=== PATIENT | male | born 1960 | race Caucasian/White ===

== ENCOUNTER 2016-11-28 20:24 | Inpatient (IN) | payer OTHER ==
--- NOTE | ~2016-11-28 | DS ---
Unit #: [id number] #: [id number] Patient: WILLIAM OCAMPO [id number] [address] [address] [id number] I MR#: [id number] NAME: WILLIAM OCAMPO. ROOM: 331 Age: 56 Sex: M Admission Date: 11/29/2016 : 1960 Discharge Date: 11/30/2016 Attending Physician: Ayanna Keita M.D. Primary Care Physician: No Primary Care Physician DISCHARGE SUMMARY SEE ADDENDUM PRINCIPAL DIAGNOSES 1. Acute kidney injury, prerenal, plus or minus a small amount of acute tubular necrosis. 2. Hypotension secondary to dehydration. 3. Rhabdomyolysis. 4. Polysubstance abuse including amphetamine and marijuana. 5. Near syncope secondary to dehydration. 6. Gastroesophageal reflux disease. 7. Tobaccoism. 8. High anion gap metabolic acidosis secondary to uremia. CONSULTANTS None. DIAGNOSTIC STUDIES IMAGING: X-ray of the right elbow on November 28, 2016, which was normal. CT of the head without contrast on November 28, 2016, which was also normal. Bilateral renal ultrasound on November 29, 2016, with bilateral increase in renal cortical echogenicity consistent with medical renal disease. No evidence of hydronephrosis. CLINICAL HISTORY AND HOSPITAL COURSE Mr. Ocampo is a nice, 56-year-old, male who presents to the emergency department with several episodes of near syncope. Please refer to H and P for further details. During one of patient's dizzy spells, he did fall and ended up with a head laceration and elbow laceration. In the emergency department, he was found to be hypotensive. He was also found to have a creatinine of 6.4 with an unknown baseline. He was subsequently admitted. Nephrotoxic medications were discontinued. He was placed on IV fluids and creatinine has trended down rather significantly. On day of discharge creatinine is now down to 1.5. Dictated by... Ayanna Keita M.D. VINCENZO/kay TD: 12/01/2016 08:59 JOB #: [id number] Unit #: [id number] #: [id number] Patient: WILLIAM OCAMPO [facility] On day of discharge, creatinine is now down to 1.5. I will note that patient's renal ultrasound did reveal some perhaps underlying medical renal disease and this discharge creatinine should be compared to baseline by his primary care physician. Patient did also have some associated mild rhabdomyolysis likely secondary to his work in the heat. This has resolved with IV hydration. Patient's urine drug screen did reveal marijuana and amphetamines. Neither of these medications are on his home med rec, but he denies any illicit drug use. Patient will be discharged home today. DISCHARGE CONDITION Stable. DISCHARGE STATUS Discharged to home. DISCHARGE MEDICATIONS 1. Lortab 10/325 one tablet p.o. q.6 hours p.r.n. for pain. 2. Prilosec 10 mg daily. 3. Bactroban ointment topically to his elbow twice daily. 4. Of note, I am discontinuing lisinopril and Aleve until he is seen in followup by his primary care physician. DISCHARGE INSTRUCTIONS 1. Patient instructed to follow a regular diet. 2. He can increase activity as tolerated and has been encouraged to drink large, large amounts of liquids while at work. 3. He can refrain from any further tobacco use and illicit drug use if indeed this is the case. 4. Followup: Patient to follow up with his primary care provider in approximately two weeks. Dictated by... Ayanna Keita M.D. VINCENZO/kay TD: 12/01/2016 09:14 JOB #: [id number] DISCHARGE SUMMARY Page 1 of 1 X Ayanna Keita MD X DISCHARGE SUMMARY
--- NOTE | ~2016-11-28 | CT71 ---
[facility] A Service [facility] RADIOLOGY TEXT RESULTS PATIENT: WILLIAM GAINES LOCATION: [place] [address]- : [birth year] UNIT #: [id number] AGE: [address]: Ayanna Keita MD SEX: M ORDER DR: [id number] [address] [address] [id number] E MR#: [id number] Acc #: [id number] NAME: WILLIAM GAINES : 1960 SEX: M STUDY DATE/TIME: 11/28/2016 21:18 UNIT: SED ROOM: STUDY DESCRIPTION: CT Head Wo Contrast Attending Physician: Khoa Curry Aprn Ordering Physician: Khoa Curry Aprn Primary Care Physician: Primary Care Physician No MEDICAL IMAGING REPORT This report is preliminary unless electronic signature is present. EXAM CT head without contrast dated 11/28/16. COMPARISON None. HISTORY Syncope times 3 today. Decreased BP and posterior headache. TECHNIQUE CT of the head was obtained without contrast in the axial plane as per the protocol. This CT exam was performed with one or more of the following radiation dose reduction techniques: Automatic exposure control, adjustment of mA and/or kV according to patient size, and iterative reconstruction. FINDINGS Ventricular size and configuration are normal. There is no evidence of acute infarct or hemorrhage. There are no extraaxial fluid collections. No mass lesion or mass effect is seen. There are no skull fractures. Minimal S-shaped nasal septal deviation is seen. Paranasal sinuses and mastoid air cells are well aerated with aplastic right and very hypoplastic left frontal sinuses. Orbits with the ocular structures do not demonstrate any significant abnormality. Mild motion artifact is noted in some of the images at the base of the brain. IMPRESSION No acute intracranial abnormality. [facility] A Service [facility] RADIOLOGY TEXT RESULTS PATIENT: WILLIAM GAINES LOCATION: [facility] 331- : [birth year] UNIT #: [id number] AGE: [address]: Ayanna Keita MD SEX: M ORDER DR: Dictated by... Arti Noyola M.D. THIS IS AN ELECTRONICALLY VERIFIED REPORT Arti Noyola M.D. at 11/30/2016 6:04 PM CPR/psc TD: 11/28/2016 23:37 JOB #: [id number] MEDICAL IMAGING REPORT Page 1 of 1
--- NOTE | ~2016-11-28 | EKG ---
PATIENT: WILLIAM GAINES UNIT #: [id number] Ventricular Rate: 78 BPM Atrial Rate: 78 BPM P-R Interval: 126 ms QRS Duration: 100 ms Q-T Interval: 390 ms QTC Calculation(Bezet): 444 ms P [place]: 82 degrees Calculated R [place]: 82 degrees Calculated T [place]: 63 degrees Diagnosis Line: Normal sinus rhythm Diagnosis Line: Normal ECG Diagnosis Line: No previous ECGs available Diagnosis Line: Confirmed by TOMA BETANCUR MD ([id number]) on Diagnosis Line: 12/06/2016 8:28:24 AM INTERPRETING MD: GYPSY GAY
--- NOTE | ~2016-11-28 | US77 ---
[facility] A Service of [facility] RADIOLOGY TEXT RESULTS PATIENT: WILLIAM GAINES LOCATION: [facility] 331- : [birth year] UNIT #: [id number] AGE: [address]: Ayanna Keita MD SEX: M ORDER DR: [id number] [facility] [address] [facility]. [place], [place] [address] [id number] I MR#: [id number] Acc #: [id number] NAME: WILLIAM GAINES. : 1960 SEX: M STUDY DATE/TIME: 11/29/2016 14:37 UNIT: [address] ROOM: [facility] STUDY DESCRIPTION: US Kidney Bilateral Complete Attending Physician: Ayanna Keita M.D. Ordering Physician: Jazzy Baltazar M.D. Primary Care Physician: No Primary Care Physician MEDICAL IMAGING REPORT This report is preliminary unless electronic signature is present EXAM Renal ultrasound 11/29/2016 HISTORY Abnormal renal function tests on 11/29/2016; elevated BUN of 54, elevated creatinine of 4.8, abnormally low GFR of 15.9. Hydronephrosis. FINDINGS The right kidney measured 13.5 cm, while the left kidney measured 12.6 cm in longitudinal dimensions. There is no evidence of hydronephrosis or nephrolithiasis. No cystic or solid mass lesions were seen on either kidney. There is increased renal cortical echogenicity characteristic of medical renal disease. Images of the bladder are normal. IMPRESSION Bilateral increase in renal cortical echogenicity characteristic of medical renal disease. No evidence of hydronephrosis. Dictated by... Carlos Jiménez M.D. THIS IS AN ELECTRONICALLY VERIFIED REPORT Carlos Jiménez M.D. at 11/30/2016 8:02 AM CARLOS/rex TD: 11/29/2016 18:39 JOB #: [id number] MEDICAL IMAGING REPORT Page 1 of 1 COPY
--- NOTE | ~2016-11-28 | CR94 ---
[facility] A Service of [facility] RADIOLOGY TEXT RESULTS PATIENT: WILLIAM GAINES LOCATION: [place] [address] : [birth year] UNIT #: [id number] AGE: [address]: Ayanna Keita MD SEX: M ORDER DR: [id number] [address] [address] [id number] E MR#: [id number] Acc #: [id number] NAME: WILLIAM GAINES : 1960 SEX: M STUDY DATE/TIME: 11/28/2016 21:17 UNIT: SED ROOM: STUDY DESCRIPTION: CR Elbow Min 3 Views Rt Attending Physician: Khoa Curry Aprn Ordering Physician: Khoa Curry Aprn Primary Care Physician: Primary Care Physician No MEDICAL IMAGING REPORT This report is preliminary unless electronic signature is present. EXAM Right elbow series 11/28/2016 INDICATIONS Syncopal episode times 3 today. Hypotension. Right elbow pain posteriorly after the syncopal episode. Posterior head pain. TECHNIQUE Three views of the right elbow. No comparisons. FINDINGS The examination is negative, no acute fracture, no retained opaque foreign body or joint effusion. IMPRESSION 1. Negative. Dictated by... Victor Hugo Nunez M.D. THIS IS AN ELECTRONICALLY VERIFIED REPORT Victor Hugo Nunez M.D. at 11/29/2016 3:17 PM ISABEL/robinson TD: 11/28/2016 23:35 JOB #: [id number] MEDICAL IMAGING REPORT Page 1 of 1
--- NOTE | ~2016-11-28 | HP ---
Unit #: [id number] #: [id number] Patient: WILLIAM GAINES [id number] [address] [place], [place] [address] [id number] I MR#: [id number] NAME: WILLIAM GAINES ROOM: 331 Age: 56 Sex: M Admission Date: 11/29/2016 : 1960 Attending Physician: Jazzy Baltazar M.D. Primary Care Physician: No Primary Care Physician HISTORY AND PHYSICAL CHIEF COMPLAINT Syncope, near syncope, hypotension, acute kidney injury. HISTORY This 56-year-old male with hypertension, DJD, GERD, was transferred from [facility] emergency department for acute kidney injury and syncope. The patient states that he was well until one week prior to admission when he began to experience postural lightheadedness. Notes decreasing urine output over the past week as well. Yesterday, he had three syncopal episodes, hit his right elbow and his head. He was taken to [facility] ER where his blood pressure was 86/61. Labs showed acute kidney injury, and mild rhabdomyolysis. Specific gravity was greater than 1.030 on urinalysis. A Narvaez catheter was placed and the patient only had about 100 mL of urine in his bladder. He was bolused with a liter of saline with improvement of his blood pressure, and started on maintenance fluids. Although patient denies illicit drug use, his urine tox screen is positive for amphetamines. He states that he does work in the heat, and has been experiencing muscle cramps. The patient is prescribed Aleve and lisinopril. PAST MEDICAL HISTORY 1. DJD. 2. Hypertension. 3. GERD. 4. Left hand surgery. ALLERGIES None. HOME MEDICATIONS 1. Lisinopril 20 mg daily. 2. Lortab 10/325 q.6 hours as needed. 3. Prilosec daily. 4. Aleve 220 mg b.i.d. to t.i.d. p.r.n. FAMILY HISTORY Negative for kidney disease. SOCIAL HISTORY The patient lives with his . He smokes less than one pack per day of tobacco, does not drink alcohol. Denies illicit drug use. REVIEW OF SYSTEMS Unit #: [id number] #: [id number] Patient: WILLIAM GAINES Notable for syncope, near syncope, DJD, hypertension, GERD, tobacco use, left hand surgery. All other systems were reviewed and are otherwise negative. PHYSICAL EXAMINATION GENERAL APPEARANCE: Pleasant 56-year-old male, currently in no acute distress. VITAL SIGNS: Temperature 97.8, pulse 86, respirations 18, initial blood pressure 86/61 which has improved. O2 saturation is 99% on room air. HEENT: Eyes PERRLA. Extraocular muscles are intact. Pharynx is benign. NECK: Supple without adenopathy or thyromegaly. CHEST: Clear. CARDIAC: Normal S1 and S2 without S3, S4 or murmur. ABDOMEN: Bowel sounds are present. No hepatosplenomegaly, tenderness or masses. EXTREMITIES: Without clubbing, cyanosis or edema. Pedal pulses are present. There is an abrasion over the right elbow. NEUROLOGIC EXAM: The patient is awake, alert, oriented. Cranial nerves are intact. Equal strength throughout. DIAGNOSTIC STUDIES LABORATORY: Admission labs - hematocrit is 52.3, white blood count is 11.5, normal platelet count. Negative cardiac markers. CPK is 1059. SMA-12 - glucose 144, BUN 61, creatinine 6.4 without previous values for comparison. CO2 is 19, albumin is 5.3. Urine tox screen positive for amphetamines, marijuana and opiates. Urinalysis - 2+ protein, 3+ blood with 5-10 red cells, 2-5 white cells, 1+ bacteria. Specific gravity greater than 1.030. IMAGING: Head CT - no acute disease. X-ray of the right elbow - no fracture. CARDIOVASCULAR: EKG - normal sinus rhythm, rate 78. Normal appearing. ASSESSMENT 1. Acute kidney injury, likely secondary to combination of dehydration, eat exposure, nonsteroidal anti-inflammatory drugs and lisinopril: Patient may have an element of acute tubular necrosis from hypotension. 2. Hypotension with history of hypertension on lisinopril. 3. Postural syncope and near syncope, likely related to orthostatic hypotension. 4. Mild rhabdomyolysis. 5. Positive urine tox screen. PLANS 1. Aggressive IV fluids. 2. Renal ultrasound. 3. Discontinue lisinopril and Aleve. 4. SCDs for DVT prophylaxis. 5. Repeat labs in the morning. If renal function is not improving, then will ask nephrology to see. Unit #: [id number] #: [id number] Patient: WILLIAM GAINES Dictated by Jazzy Baltazar M.D. AML/df TD: 11/29/2016 06:45 JOB #: [id number] HISTORY AND PHYSICAL Page 1 of 1 X Jazzy Baltazar MD X HISTORY AND PHYSICAL
[2016-11-28] MEDS ORDERED: LISINOPRIL PO (20:34)
[2016-11-28 21:13] LABS: BASOPHIL% 0.4 % (0-2.5); EOSINOPHIL# 0.1 X10e3 (0-0.7); EOSINOPHIL% 0.7 % (0.0-7.0); HEMATOCRIT 52.3 % (38.0-50.0); HEMOGLOBIN 17.3 gm/dL (13.0-16.0); LYMPHOCYTE# 1.7 X10e3 (1.0-3.5); LYMPHOCYTE% 14.6 % (17.0-45.0); MEAN CORPUSCULAR HEMOGLOBIN 30.2 PG (28-34); MEAN CORPUSCULAR HGB CONC 33.2 g/dL (30-36); MEAN PLATELET VOLUME 7.2 FL (6.5-11.5); MONOCYTE# 0.6 X10e3 (0-1.0); MONOCYTE% 5.2 % (3.0-12.0); NEUTROPHIL# 9.1 X10e3 (1.5-7.1); NEUTROPHIL% 79.1 % (40-75); PLATELET COUNT 306 X10e3 (140-420); RED BLOOD COUNT 5.75 X10e (3.90-5.60); RED CELL DISTRIBUTION WIDTH 13.6 % (11.0-15.5); WHITE BLOOD COUNT 11.5 X10e3 (4.0-10.5)
[2016-11-28 21:16] LABS: DIFF IND NO
[2016-11-28 21:28] LABS: POC - TROPONIN <0.05 ng/mL (<=0.05)
[2016-11-28 21:31] LABS: ALBUMIN SERUM 5.3 g/dL (3.5-5.0); BILIRUBIN, DIRECT 0.1 mg/dL (0.0-0.2); BILIRUBIN,INDIRECT 0.5 mg/dL (0.0-0.9); BILIRUBIN,TOTAL 0.6 mg/dL (0.2-2.0)
[2016-11-28 22:09] LABS: BUN/CREATININE RATIO 9.53; CREATININE SERUM 6.4 mg/dL (0.6-1.4); POTASSIUM 4.6 mmol/L (3.5-5.1)
[2016-11-29 00:49] LABS: URINE SOURCE CLEAN CATCH
[2016-11-29 00:53] LABS: URINE APPEARANCE CLEAR; URINE BILIRUBIN NEG (NEG); URINE BLOOD 3+ (NEG); URINE COLOR YELLOW; URINE GLUCOSE NEG (NORM); URINE KETONE NEG (NEG); URINE LEUKOCYTE ESTERASE NEG (NEG); URINE NITRATE NEG (NEG); URINE PROTEIN 2+ (NEG); URINE SPECIFIC GRAVITY >=1.030 (1.003-1.035); URINE UROBILINOGEN 0.2 MG/DL (NORM)
[2016-11-29 00:55] LABS: MICRO INDICATED? YES
[2016-11-29 00:57] LABS: CULTURE INDICATED? YES; URINE BACTERIA 1+ (NEG)
[2016-11-29 00:58] LABS: URINE SQUAMOUS EPITHELIAL CELL FEW /[HPF]
[2016-11-29 00:59] LABS: URINE MUCUS PRESENT
[2016-11-29 01:09] LABS: AMPHETAMINE POS (NEG); BARBITURATES NEG (NEG); BENZODIAZEPINES NEG (NEG); COCAINE NEG (NEG); MARIJUANA POS (NEG); OPIATES POS (NEG); TRICYCLIC ANTIDEPRESSANTS NEG (NEG); U METHADONE NEG (NEG)
[2016-11-29] MEDS ORDERED: ALEVE220 M1 PO (04:30)
[2016-11-29] MEDS ORDERED: LORTAB 10-3251 EACH PO (04:30)
[2016-11-29] MEDS ORDERED: PRILOSEC10 M1 PO (04:30)
[2016-11-29 07:19] LABS: BASOPHIL% 0.4 % (0-2.5); EOSINOPHIL# 0.2 X10e3 (0-0.7); EOSINOPHIL% 2.3 % (0.0-7.0); HEMATOCRIT 47.4 % (38.0-50.0); HEMOGLOBIN 15.6 gm/dL (13.0-16.0); LYMPHOCYTE# 2.2 X10e3 (1.0-3.5); LYMPHOCYTE% 25.7 % (17.0-45.0); MEAN CELL VOLUME 91.5 FL (83-96); MEAN CORPUSCULAR HEMOGLOBIN 30.2 PG (28-34); MEAN PLATELET VOLUME 7.4 FL (6.5-11.5); MONOCYTE# 0.7 X10e3 (0-1.0); NEUTROPHIL# 5.4 X10e3 (1.5-7.1); NEUTROPHIL% 63.6 % (40-75); PLATELET COUNT 229 X10e3 (140-420); RED BLOOD COUNT 5.18 X10e (3.90-5.60); RED CELL DISTRIBUTION WIDTH 13.4 % (11.0-15.5); WHITE BLOOD COUNT 8.5 X10e3 (4.0-10.5)
[2016-11-29 07:23] LABS: DIFF IND NO
[2016-11-29 08:09] LABS: BUN/CREATININE RATIO 13.5; CALCIUM SERUM 8.1 mg/dL (8.4-10.2); GLOM FILT RATE Estimated 15.9 mL/min (>60)
[2016-11-30 06:30] LABS: BUN/CREATININE RATIO 22.66; GLOM FILT RATE Estimated 52.1 mL/min (>60)
[2016-11-30 06:35] LABS: CREATININE SERUM 1.5 mg/dL (0.6-1.4)
[2016-11-30] MEDS ORDERED: CENTANY30 G1 TOP (11:46)
== END 2016-11-30 13:18 | disposition home or self-care (01) | DRG 683 ==
LOC: SED 20:24 → C3A PCU 11-29 00:12 → SEDOF 11-29 00:12 → C3A PCU 11-29 03:38 → SEDOF 11-29 03:38 → SED 11-29 04:40 → SEDOF 11-29 04:40 → C3A PCU 11-29 04:40
PROVIDERS: Internal Medicine; Nurse Practitioner Family
DX: N17.0 Acute kidney failure with tubular necrosis (principal); M62.82 Rhabdomyolysis; E87.2 Acidosis; I95.9 Hypotension, unspecified; E86.0 Dehydration; F15.10 Other stimulant abuse, uncomplicated; F12.10 Cannabis abuse, uncomplicated; R55 Syncope and collapse; F17.210 Nicotine dependence, cigarettes, uncomplicated; K21.9 Gastro-esophageal reflux disease without esophagitis; M19.90 Unspecified osteoarthritis, unspecified site
CPT/HCPCS: 36415; 70450; 73080; 76770; 80048; 80076; 80307; 81003; 82550; 82553; 83735; 84443; 84484; 85025; 87086; 87806; 93005; 96360; 97162; 97165; 99285; J2270